=== PATIENT | female | born 1950 | race Caucasian/White ===

== ENCOUNTER → 2023-05-25 15:09 | Outpatient (REF) | payer OTHER, SELFPAY | LOC: DHCBS HW 15:09 | PROVIDERS: ATTENDING PHYSICIAN Internal Medicine Interventional Cardiology; FAMILY PHYSICIAN Physician Assistant | DX: R06.02 Shortness of breath (principal); R06.09 Other forms of dyspnea; E78.2 Mixed hyperlipidemia; I10 Essential (primary) hypertension; I77.810 Thoracic aortic ectasia; I35.1 Nonrheumatic aortic (valve) insufficiency | CPT/HCPCS: 93306 ==

== ENCOUNTER → 2023-06-01 07:16 | Outpatient (REF) | payer OTHER, SELFPAY | LOC: DHCBC/DCA 07:16 | PROVIDERS: ATTENDING PHYSICIAN Internal Medicine Interventional Cardiology; FAMILY PHYSICIAN Physician Assistant | DX: R06.02 Shortness of breath (principal); R06.09 Other forms of dyspnea; E78.2 Mixed hyperlipidemia; I10 Essential (primary) hypertension; I77.810 Thoracic aortic ectasia; I35.1 Nonrheumatic aortic (valve) insufficiency | CPT/HCPCS: 78452; 93017; A9500 ==

== ENCOUNTER → 2023-08-31 10:14 | Outpatient (REF) | payer OTHER, SELFPAY | LOC: HWRAD 10:14 | PROVIDERS: ATTENDING PHYSICIAN Family Medicine | DX: I71.21 Aneurysm of the ascending aorta, without rupture (principal) | CPT/HCPCS: 71275; Q9967 ==

== ENCOUNTER 2023-10-21 13:28 | Emergency (ER) | payer OTHER, SELFPAY ==
[2023-10-21 13:32] VITALS: BP 149/86
[2023-10-21 13:47] VITALS: BMI 25.9
[2023-10-21 13:50] VITALS: BP 124/85
[2023-10-21 14:15] LABS: % Basophils 0.9 % (0-2); % Eosinophils 2.3 % (0-6); % Immature Granulocytes 0.3 % (0-0.5); % Lymphocytes 26.2 % (20.5-51.1); % Monocytes 9.2 % (1.7-9.3); % Neutrophils 61.1 % (42.2-75.2); Absolute Basophils 0.1 10^3/uL (0-0.2); Absolute Eosinophils 0.2 10^3/uL (0-0.7); Absolute Lymphocytes 1.7 10^3/uL (1.2-3.4); Absolute Monocytes 0.6 10^3/uL (0.1-0.6); Absolute Neutrophils 4.1 10^3/uL (1.4-6.5); Hematocrit 39.5 % (37.0-47.0); Hemoglobin 13.5 g/dL (12.0-16.0); Mean Corp Hgb Conc. 34.2 g/dL (33.0-37.0); Mean Corpuscular Hgb 29.3 pg (27.0-31.0); Mean Corpuscular Volume 85.7 fL (81.0-99.0); Mean Platelet Volume 9.7 fL (7.4-10.4); Nucleated Red Blood Cells % 0 %; Platelet Count 340 10^3/uL (130-400); Red Blood Cell Count 4.61 10^6/uL (4.20-5.40); Red Cell Dist. Width 13.2 % (11.5-14.5); White Blood Cell Count 6.7 10^3/uL (4.8-10.8)
--- NOTE | 2023-10-21 14:22 | ED.GENMED ---
History of Present Illness
General
Chief Complaint: Cardiac Symptoms
Source: patient
Time Seen by Provider: 10/21/23 14:03
History of Present Illness
History of Present Illness:
This patient is a 73-year-old female presents emergency department with a description of episodes that have been happening since last week. She has had a total of 3 episodes. She states she is always outside, it is hot out she does report she
feels sweaty because is hot, and she will start to feel like she is going to pass out associated with dyspnea and blurry vision. This will last for about 5 to 10 minutes and then resolved completely although she will feel tired afterwards. 1 time
it happened while she was walking, and the other 2 times it happened while she was bending over. She denies associated spinning or vertigo, a sense of imbalance, nausea, vomiting, headache, back pain, neck pain, chest pain, abdominal pain,
numbness, tingling, weakness, diplopia, dysarthria, or other complaints. Of note, patient has had 'breathing problems' described as unexplained dyspnea for some time. She had a full pulmonary workup that was unremarkable. She is quite active and
states that she went swimming after yesterday's event. Of note, patient does have a asymptomatic borderline thoracic ascending aortic aneurysm that is being regularly monitored.
Past History
Past History
ED Past Medical History: Other (Hyperlipidemia, hypertension)
ED Past Surgical History: Gynecological
Social History
Tobacco: Non-smoker
Alcohol: Occasional
Drug: None
Personal:
Living: alone
Phy Exam
Physical Exam
Physical Exam:
GENERAL: Alert , in no apparent distress, very pleasant, extremely well-appearing
EYE: pupils equal and reactive
NECK: Supple, no significant adenopathy.
ENT: o/p clr, mmm.
CARDIAC: Regular rate and rhythm .
LUNGS: Clear breath sounds bilaterally, no acute respiratory distress, no wheezes/rales/rhonchi
ABDOMEN: Soft, without focal tenderness, no r/g, no cvat
NEUROLOGICAL: Alert and oriented, no focal neuro deficits, motor 5 out of 5, sensory intact, cranial nerves II through XII intact
SKIN: Warm and dry, skin intact.
MUSCULOSKELETAL: No edema, well perfused.
PSYCH: Normal and appropriate interaction.
Course
Orders/Labs/Results
Orders:
Orders
10/21/23 13:29
Electrocardiogram (*1) Urgent
Reason for Study: Chest Pain
EKG- Treatment ONCE
10/21/23 14:04
Complete Blood Count/With Diff Urgent
Comprehensive Metabolic Panel Urgent
Troponin I Urgent
Abnormal Lab Results
10/21/23
14:04
Glucose 127 H mg/dl
(70-99)
10/21/23 14:04
10/21/23 14:04
Vital Signs
Initial and Last Documented VS:
Initial Vital Signs
Temp Pulse Resp BP Pulse Ox
98.3 F 67 18 149/86 97
10/21/23 13:32 10/21/23 13:32 10/21/23 13:32 10/21/23 13:32 10/21/23 13:32
Last Documented Vital Signs
Temp Pulse Resp BP Pulse Ox
98.3 F 59 16 124/85 95
10/21/23 13:32 10/21/23 14:45 10/21/23 14:45 10/21/23 13:50 10/21/23 14:45
*Critical Care Note
Total Time (30-74mins, 75-104mins- exclusive of procedures): Not Applicable
Update Note
Update Note:
Patient presents to the Emergency Department with __dyspnea with dizziness and blurry vision
Number and Complexity of Problems Addressed at the Encounter
� Chronic conditions affecting care:
� Acute Exacerbation and/or Progression of Chronic Illness:
� Differential Diagnosis includes: But not limited to orthostasis, vasovagal events, dehydration, etc. etc.
Amount and/or Complexity of Data to be Reviewed and Analyzed
� I performed an independent evaluation of and my interpretation is:
EKG: Read by me, normal sinus rhythm, normal rate, normal axis, no acute ischemia
CT:
Xrays:
Laboratory Studies:nl
Other:
� Review of other/old records reveals: Echocardiogram from May 2023 reviewed at that time EF 61% without wall motion abnormalities, mild MR/AR/TR with slightly elevated pulmonary arterial pressure, borderline dilated thoracic
aneurysm at 4.1 cm. Patient also had a stress test May 2023 that was negative for ischemia and her systolic function was normal at that time.
� Clinical information was obtained by an independent historian:
� Prescriptions/Medications Considered but not given:
� Further testing considered but not performed:
Risk of Complications and/or Morbidity or Mortality of Patient Management
� Social determinants of health affecting care:
� Discussion with other providers (PCP, Hospitalists, Consultants, etc):
� Escalation of care including admission/observation vs risk of discharge considered:pt remains asx here. I printed out for her echo results incuding attn to ascending aorta size. She is aware of import of bp managemet/control
and has f/u later this month with cards. D/w pt import of f/u and reasons to rted.
ED Attending Note
-
Portions of this chart may have been created with voice recognition software.� Occasional wrong word or��sound alike� substitutions may have occurred due to the inherent limitations of voice recognition software.
Discharge Plan
Departure
Patient Disposition: Home (Routine Discharge)
Date of Disposition: 10/21/23
Time of Disposition: 15:26
Patient with high blood pressure during this ER visit?: Yes
Condition: Good
Discharge Problem:
Dizziness
Instructions: Shortness of breath, Dizziness, Adult ED, BLOOD PRESSURE
Referrals:
Ashely Swan PA [Family Provider] - Next open appointment
Activity Restrictions/Additional Instructions:
IF YOU DEVELOP INCREASING/NEW/RECURRENT EPISODES OF DIZZINESS OR SHORTNESS OF BREATH, ANY FEVER, VOMITING, CHEST PAIN, HEADACHE, BACK PAIN, OR OTHER WORRISOME SIGNS, GO TO THE ER IMMEDIATELY!
Interventions
Interventions:
*Risk Screen - Suicide Last Done: 10/21/23 13:29
*General Assessment Last Done: 10/21/23 13:32
*Neglect/Abuse Screening Last Done: 10/21/23 13:47
ED- Fall Risk Assessment Last Done: 10/21/23 13:47
*ED COVID-19 Vaccine History Last Done: 10/21/23 13:47
ED- Cardiac Assessment Last Done: 10/21/23 13:47
ED- Pulmonary Assessment Last Done: 10/21/23 13:47
Discharge Date and Time
Print Language: UPPER SORBIAN
[2023-10-21 14:26] LABS: ALT (SGPT) 33 U/L (0-35); AST (SGOT) 29 U/L (14-36); Albumin 4.3 g/dl (3.5-5.0); Alkaline Phosphatase 76 U/L (38-126); Blood Urea Nitrogen 15 mg/dl (7-17); Calcium 9.6 mg/dl (8.4-10.2); Carbon Dioxide 30 mmol/L (22-30); Chloride 101 mmol/L (98-107); Estimated Creatinine Clearance 66 ml/min; Glucose 127 mg/dl (70-99); Potassium 4.4 mmol/L (3.5-5.1); Sodium 140 mmol/L (135-145); Total Bilirubin 0.3 mg/dl (0.2-1.3); Total Protein 6.8 g/dl (6.3-8.2); eGFR > 60.00
[2023-10-21 14:36] LABS: Troponin I < 0.012 ng/ml
[2023-10-21 15:00] VITALS: BP 102/70
== END 2023-10-21 15:57 | disposition home or self-care (01) ==
LOC: EMR 13:28
PROVIDERS: Emergency Medicine; EMERGENCY PHYSICIAN Emergency Medicine; FAMILY PHYSICIAN Physician Assistant
DX: R42 Dizziness and giddiness (principal); E78.00 Pure hypercholesterolemia, unspecified; I10 Essential (primary) hypertension
CPT/HCPCS: 99283; 80053; 84484; 85025; 93005

== ENCOUNTER → 2023-10-28 10:47 | Outpatient (REF) | payer OTHER, SELFPAY | LOC: HWWDC 10:47 | PROVIDERS: ATTENDING PHYSICIAN Obstetrics & Gynecology; FAMILY PHYSICIAN Family Medicine | DX: Z12.31 Encounter for screening mammogram for malignant neoplasm of breast (principal) | CPT/HCPCS: 77063; 77067 ==

== ENCOUNTER → 2024-05-08 10:42 | Outpatient (REF) | payer OTHER, SELFPAY | LOC: HWRAD 10:42 | PROVIDERS: ATTENDING PHYSICIAN Family Medicine | DX: E04.2 Nontoxic multinodular goiter (principal) | CPT/HCPCS: 76536 ==

== ENCOUNTER → 2024-05-15 08:52 | Outpatient (REF) | payer OTHER, SELFPAY | LOC: RAD 08:52 | PROVIDERS: ATTENDING PHYSICIAN Internal Medicine Interventional Cardiology; FAMILY PHYSICIAN Family Medicine | DX: I10 Essential (primary) hypertension (principal); R06.09 Other forms of dyspnea; I77.810 Thoracic aortic ectasia | CPT/HCPCS: 75574; Q9967 ==

== ENCOUNTER → 2024-05-16 11:52 | Outpatient (REF) | payer OTHER, SELFPAY ==
[2024-05-16 12:48] VITALS: BP 126/81; BP_SYST 57
== END ==
LOC: RADI 11:52
PROVIDERS: ATTENDING PHYSICIAN Family Medicine
DX: E04.1 Nontoxic single thyroid nodule (principal)
CPT/HCPCS: 88173; 10005

== ENCOUNTER → 2024-10-29 12:44 | Outpatient (REF) | payer OTHER, SELFPAY | LOC: WDC 12:44 | PROVIDERS: ATTENDING PHYSICIAN Advanced Practice Midwife; FAMILY PHYSICIAN Family Medicine | DX: Z12.31 Encounter for screening mammogram for malignant neoplasm of breast (principal) | CPT/HCPCS: 77063; 77067 ==